=== PATIENT | female | born 1980 | race Caucasian/White ===

== ENCOUNTER 2022-01-07 12:50 | Outpatient (CLI) | payer MEDICAID, SELFPAY ==
[2022-01-07 21:14] LABS: Albumin* 4.3 g/dL (3.3-5.0); Chloride* 103 mmol/L (96-114)
[2022-01-07 21:15] LABS: Potassium* 4.3 mmol/L (3.6-5.1); Sodium* 136 mmol/L (135-149)
[2022-01-07 21:17] LABS: Aspartate Amino Transferase* 23 U/L (12-35); Bilirubin Total* 0.5 mg/dL (0.1-1.5); Blood Urea Nitrogen* 8 mg/dL (5-24); Carbon Dioxide* 25 mmol/L (20-32); Cholesterol* 219 mg/dL (90-199); Creatinine* 0.9 mg/dL (0.5-1.5); Estimated Glomerular Filt Rate 83 ml/min; Total Protein* 7.3 g/dL (6.0-8.3)
[2022-01-07 21:18] LABS: Alanine Aminotransferase* 20 U/L (4-35); Alkaline Phosphatase* 57 U/L (40-150); Calcium* 9.4 mg/dL (8.4-10.6); Glucose* 98 mg/dL (60-115); HDL Cholesterol* 64 mg/dL (>=50); LDL Cholesterol Calculated 113 mg/dL (<100); Triglycerides* 211 mg/dL (40-149)
== END 2022-01-07 12:51 | disposition home or self-care (01) ==
PROVIDERS: PCP Family Medicine; Visit Provider Family Medicine
DX: I10 Essential (primary) hypertension (principal); Z13.6 Encounter for screening for cardiovascular disorders; K21.9 Gastro-esophageal reflux disease without esophagitis
CPT/HCPCS: 80053; 80061

== ENCOUNTER 2023-01-14 14:43 | Outpatient (CLI) | payer MEDICAID, SELFPAY | END 2023-01-14 14:44 | disposition home or self-care (01) | PROVIDERS: PCP Physician Assistant Medical; Visit Provider Physician Assistant Medical | DX: Z01.419 Encounter for gynecological examination (general) (routine) without abnormal findings (principal); I10 Essential (primary) hypertension; E66.01 Morbid (severe) obesity due to excess calories; Z13.6 Encounter for screening for cardiovascular disorders; Z13.29 Encounter for screening for other suspected endocrine disorder; Z30.9 Encounter for contraceptive management, unspecified | CPT/HCPCS: 80053; 80061; 84443 ==

== ENCOUNTER 2024-11-13 15:07 | Outpatient (CLI) | payer MEDICAID, SELFPAY | END 2024-11-13 15:08 | disposition home or self-care (01) | PROVIDERS: PCP Physician Assistant Medical; Visit Provider Physician Assistant Medical | DX: E78.2 Mixed hyperlipidemia (principal); I10 Essential (primary) hypertension; F31.70 Bipolar disorder, currently in remission, most recent episode unspecified | CPT/HCPCS: 80053; 80061; 84443 ==